=== PATIENT | female | born 1995 | race Caucasian/White ===

== ENCOUNTER 2018-09-24 16:26 | Inpatient (IN) | payer MEDICAID ==
[~2018-09-24] VITALS: Ht 162.6 cm; Wt 112.1 kg
[2018-09-24] MEDS ORDERED: MOM 30ML SUSPENSION UDC PO PRN (18:00)
[2018-09-24] MEDS ORDERED: ONDANSETRON 4 MG TAB (S0181) PO PRN (18:00)
[2018-09-24 18:15] VITALS: BP 134/79
[2018-09-24] MEDS ORDERED: ENTER DRUG NAME HERE (PATIENT'S OWN MED) PO SCH (18:15)
[2018-09-24] MEDS ORDERED: ENSK1TAB3 PO (19:10)
[2018-09-24] MEDS ORDERED: IBUP200T45 PO (19:10)
[2018-09-24] MEDS ORDERED: BISACODYL 10 MG SUPP PR PRN (19:30)
[2018-09-24] MEDS: ACETAMINOPHEN TAB 650MG DOSE (2X325MG) PO SCH (21:59)
[2018-09-24 22:00] VITALS: BP 129/60
[2018-09-24] MEDS: DOCUSATE SODIUM 100 MG CAP PO SCH (22:00)
[2018-09-24] MEDS: SENNA 8.6 MG TAB (SENOKOT) PO SCH (22:00)
[2018-09-24] MEDS: CYCLOBENZAPRINE 5MG TABLET PO PRN (22:00)
[2018-09-24] MEDS: BISACODYL 5 MG TAB PO SCH (22:02)
[2018-09-25] MEDS: CYCLOBENZAPRINE 5MG TABLET PO PRN ×3 (04:01→16:46)
[2018-09-25 06:00] VITALS: BP 125/60
[2018-09-25 07:09] LABS: BASO % 0.5 % (0.0-1.0); EOS # 0.1 10^3/uL (0.0-0.50); EOS % 2.2 % (0.0-3.0); HEMATOCRIT 30.7 % (36.0-47.0); HEMOGLOBIN 9.3 g/dl (12.0-15.5); LYMPH # 2.2 10^3/uL (1.5-6.5); LYMPH % 34.5 % (24.0-44.0); MEAN CORPUSCULAR HEMOGLOBIN 25.7 pg (27.0-33.0); MEAN CORPUSCULAR HGB CONC 30.3 g/dl (32.0-36.5); MEAN CORPUSCULAR VOLUME 84.8 fl (80.0-96.0); MONO # 0.6 10^3/uL (0.0-0.8); MONO % 9.7 % (0.0-5.0); NEUTROPHILS # 3.4 10^3/uL (1.8-7.7); NEUTROPHILS % 52.8 % (36.0-66.0); PLATELET COUNT, AUTOMATED 335 10^3/uL (150-450); RED BLOOD COUNT 3.62 10^6/uL (4.00-5.40); WHITE BLOOD COUNT 6.4 10^3/uL (4.0-10.0)
[2018-09-25 07:30] LABS: ALBUMIN 2.6 GM/DL (3.2-5.2); ALT/SGPT 64 U/L (12-78); BILIRUBIN,TOTAL 0.3 MG/DL (0.2-1.0); BLOOD UREA NITROGEN 5 MG/DL (7-18); CARBON DIOXIDE LEVEL 32 MEQ/L (21-32); CHLORIDE LEVEL 106 MEQ/L (98-107); CREATININE FOR GFR 0.61 MG/DL (0.55-1.30); GLOMERULAR FILTRATION RATE > 60.0 (>60); GLUCOSE, FASTING 91 MG/DL (70-100); POTASSIUM SERUM 3.7 MEQ/L (3.5-5.1); SODIUM LEVEL 142 MEQ/L (136-145)
[2018-09-25] MEDS: PANTOPRAZOLE 40MG TAB (PROTONIX) PO SCH (08:44)
[2018-09-25] MEDS: ASPIRIN 325 MG TAB PO SCH (08:44)
[2018-09-25] MEDS: BISACODYL 5 MG TAB PO SCH (08:44)
[2018-09-25] MEDS: DOCUSATE SODIUM 100 MG CAP PO SCH ×2 (08:44→21:00)
[2018-09-25] MEDS: ACETAMINOPHEN TAB 650MG DOSE (2X325MG) PO SCH ×2 (08:44→16:45)
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
[2018-09-25] MEDS: ENOXAPARIN 40 MG/0.4 ML SYRINGE (J1650) SC SCH (11:10)
[2018-09-25] MEDS: oxyCODONE 5MG TAB PO PRN (11:10)
[2018-09-25 11:28] LABS: HCG, SERUM QUANTITATIVE < 1.0 MIU/ML
--- NOTE | 2018-09-25 11:46 | REP ---
BILATERAL LOWER EXTREMITY DUPLEX DOPPLER VENOUS ULTRASOUND: Real-time compression and duplex Doppler interrogation of the bilateral lower extremity deep venous systems is performed. Bilateral common femoral and superficial femoral veins are fully compressible with transducer pressure as is the left popliteal vein, with normal internal flow and no intraluminal thrombus. Right popliteal vein could not be visualized due to patient immobility and unable to maintain appropriate positioning to adequately visual the right popliteal vein. IMPRESSION: Right popliteal vein could not be visualized. Otherwise, no evidence of deep vein thrombosis bilateral lower extremities. Electronically Signed by Khari Boland MD 09/26/2018 11:35 A
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
[2018-09-25 14:00] VITALS: BP 121/59
[2018-09-25] MEDS ORDERED: MAGNESIUM CITRATE 300 ML BTL PO ONE (16:00)
[2018-09-25 20:00] VITALS: BP 133/67
[2018-09-25] MEDS: ACETAMINOPHEN 500 MG TAB PO SCH (21:00)
[2018-09-25] MEDS: SENNA 8.6 MG TAB (SENOKOT) PO SCH (21:00)
[2018-09-25] MEDS: NORCO, ANEXSIA 5/325MG TABLET (HYDROcodone/ACETAMINOPHEN) PO PRN (22:05)
[2018-09-26] MEDS: NORCO, ANEXSIA 5/325MG TABLET (HYDROcodone/ACETAMINOPHEN) PO PRN (03:19)
[2018-09-26 06:00] VITALS: BP 114/58
[2018-09-26] MEDS: BISACODYL 5 MG TAB PO SCH (09:00)
[2018-09-26] MEDS: DOCUSATE SODIUM 100 MG CAP PO SCH ×2 (09:00→21:00)
[2018-09-26] MEDS ORDERED: zolPIDEM TARTRATE 5 MG TAB PO PRN (09:45)
[2018-09-26] MEDS: ENOXAPARIN 40 MG/0.4 ML SYRINGE (J1650) SC SCH (09:46)
[2018-09-26] MEDS: PANTOPRAZOLE 40MG TAB (PROTONIX) PO SCH (09:46)
[2018-09-26] MEDS: ACETAMINOPHEN 500 MG TAB PO SCH ×3 (09:46→20:45)
[2018-09-26] MEDS: ASPIRIN 325 MG TAB PO SCH (09:46)
[2018-09-26] MEDS ORDERED: PILL CUTTER 1 EACH XX PRN (10:00)
[2018-09-26] MEDS ORDERED: oxyCODONE 5MG TAB PO ONE (10:00)
[2018-09-26] MEDS ORDERED: KETOROLAC TROMETHAMINE 10 MG TAB PO ONE (10:00)
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
[2018-09-26 14:00] VITALS: BP 127/56
[2018-09-26 19:56] VITALS: BP 127/60
[2018-09-26] MEDS: SENNA 8.6 MG TAB (SENOKOT) PO SCH (21:00)
[2018-09-27 04:00] VITALS: BP 111/59
[2018-09-27] MEDS: oxyCODONE 5MG TAB PO PRN ×2 (07:39→21:30)
[2018-09-27] MEDS: ENOXAPARIN 40 MG/0.4 ML SYRINGE (J1650) SC SCH (07:39)
[2018-09-27] MEDS: PANTOPRAZOLE 40MG TAB (PROTONIX) PO SCH (07:39)
[2018-09-27] MEDS: ASPIRIN 325 MG TAB PO SCH (07:39)
[2018-09-27] MEDS: BISACODYL 5 MG TAB PO SCH (09:00)
[2018-09-27] MEDS: DOCUSATE SODIUM 100 MG CAP PO SCH ×2 (09:00→20:54)
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
[2018-09-27] MEDS: ACETAMINOPHEN 500 MG TAB PO SCH ×3 (10:15→20:53)
[2018-09-27 10:35] LABS: HEMATOCRIT 31.8 % (36.0-47.0); HEMOGLOBIN 9.8 g/dl (12.0-15.5); MEAN CORPUSCULAR HEMOGLOBIN 26.1 pg (27.0-33.0); MEAN CORPUSCULAR HGB CONC 30.8 g/dl (32.0-36.5); MEAN CORPUSCULAR VOLUME 84.6 fl (80.0-96.0); PLATELET COUNT, AUTOMATED 423 10^3/uL (150-450); RED BLOOD COUNT 3.76 10^6/uL (4.00-5.40); WHITE BLOOD COUNT 8.3 10^3/uL (4.0-10.0)
[2018-09-27 10:57] LABS: BLOOD UREA NITROGEN 6 MG/DL (7-18); CALCIUM LEVEL 9.3 MG/DL (8.5-10.1); CARBON DIOXIDE LEVEL 27 MEQ/L (21-32); CHLORIDE LEVEL 105 MEQ/L (98-107); CREATININE FOR GFR 0.65 MG/DL (0.55-1.30); GLOMERULAR FILTRATION RATE > 60.0 (>60); GLUCOSE, FASTING 84 MG/DL (70-100); POTASSIUM SERUM 4.1 MEQ/L (3.5-5.1); SODIUM LEVEL 138 MEQ/L (136-145)
[2018-09-27 14:00] VITALS: BP 127/59
[2018-09-27 20:00] VITALS: BP 142/92
[2018-09-27] MEDS: SENNA 8.6 MG TAB (SENOKOT) PO SCH (20:55)
[2018-09-27] MEDS: zolPIDEM TARTRATE 5 MG TAB PO PRN (21:30)
[2018-09-28 05:53] VITALS: BP 120/70
[2018-09-28 07:18] LABS: BASO % 0.3 % (0.0-1.0); EOS # 0.2 10^3/uL (0.0-0.50); EOS % 2.9 % (0.0-3.0); HEMATOCRIT 29.2 % (36.0-47.0); LYMPH # 2.3 10^3/uL (1.5-6.5); LYMPH % 34.7 % (24.0-44.0); MEAN CORPUSCULAR HEMOGLOBIN 25.8 pg (27.0-33.0); MEAN CORPUSCULAR HGB CONC 30.8 g/dl (32.0-36.5); MEAN CORPUSCULAR VOLUME 83.7 fl (80.0-96.0); MONO # 0.5 10^3/uL (0.0-0.8); MONO % 7.6 % (0.0-5.0); NEUTROPHILS # 3.6 10^3/uL (1.8-7.7); NEUTROPHILS % 54.3 % (36.0-66.0); PLATELET COUNT, AUTOMATED 387 10^3/uL (150-450); RED BLOOD COUNT 3.49 10^6/uL (4.00-5.40); WHITE BLOOD COUNT 6.5 10^3/uL (4.0-10.0)
[2018-09-28] MEDS: oxyCODONE 5MG TAB PO PRN (07:30)
[2018-09-28 07:44] LABS: BLOOD UREA NITROGEN 10 MG/DL (7-18); CALCIUM LEVEL 9.2 MG/DL (8.5-10.1); CARBON DIOXIDE LEVEL 29 MEQ/L (21-32); CHLORIDE LEVEL 107 MEQ/L (98-107); CREATININE FOR GFR 0.63 MG/DL (0.55-1.30); GLOMERULAR FILTRATION RATE > 60.0 (>60); GLUCOSE, FASTING 93 MG/DL (70-100); POTASSIUM SERUM 3.9 MEQ/L (3.5-5.1); SODIUM LEVEL 143 MEQ/L (136-145)
[2018-09-28] MEDS: ACETAMINOPHEN 500 MG TAB PO SCH ×3 (08:14→20:58)
[2018-09-28] MEDS: PANTOPRAZOLE 40MG TAB (PROTONIX) PO SCH (08:14)
[2018-09-28] MEDS: ASPIRIN 325 MG TAB PO SCH (08:14)
[2018-09-28] MEDS: ENOXAPARIN 40 MG/0.4 ML SYRINGE (J1650) SC SCH (08:15)
[2018-09-28] MEDS: BISACODYL 5 MG TAB PO SCH ×2 (09:00→10:15)
[2018-09-28] MEDS: DOCUSATE SODIUM 100 MG CAP PO SCH ×2 (09:00→21:00)
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
[2018-09-28 14:00] VITALS: BP 131/64
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
[2018-09-28 20:00] VITALS: BP 136/77
[2018-09-28] MEDS: zolPIDEM TARTRATE 5 MG TAB PO PRN (20:59)
[2018-09-28] MEDS: SENNA 8.6 MG TAB (SENOKOT) PO SCH (21:00)
[2018-09-29 06:00] VITALS: BP 144/60
[2018-09-29] MEDS: DOCUSATE SODIUM 100 MG CAP PO SCH ×2 (09:00→20:04)
[2018-09-29] MEDS: BISACODYL 5 MG TAB PO SCH ×2 (09:00)
[2018-09-29] MEDS: ENOXAPARIN 40 MG/0.4 ML SYRINGE (J1650) SC SCH (09:32)
[2018-09-29] MEDS: PANTOPRAZOLE 40MG TAB (PROTONIX) PO SCH (09:32)
[2018-09-29] MEDS: ASPIRIN 325 MG TAB PO SCH (09:32)
[2018-09-29] MEDS: ACETAMINOPHEN 500 MG TAB PO SCH ×3 (09:34→20:04)
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
[2018-09-29 14:00] VITALS: BP 143/80
[2018-09-29 20:00] VITALS: BP 131/60
[2018-09-29] MEDS: SENNA 8.6 MG TAB (SENOKOT) PO SCH (20:04)
[2018-09-29] MEDS: zolPIDEM TARTRATE 5 MG TAB PO PRN (21:26)
[2018-09-30 06:00] VITALS: BP 135/65
[2018-09-30] MEDS: DOCUSATE SODIUM 100 MG CAP PO SCH (09:00)
[2018-09-30] MEDS: BISACODYL 5 MG TAB PO SCH ×2 (09:00)
[2018-09-30] MEDS: ASPIRIN 325 MG TAB PO SCH (09:11)
[2018-09-30] MEDS: ACETAMINOPHEN 500 MG TAB PO SCH (09:11)
[2018-09-30] MEDS: PANTOPRAZOLE 40MG TAB (PROTONIX) PO SCH (09:11)
[2018-09-30] MEDS ORDERED: XARE10TA PO (11:06)
[2018-09-30] MEDS ORDERED: PANT40TA3 PO (11:06)
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
[2018-09-30] MEDS ORDERED: RIVAROXABAN 10 MG TAB (XARELTO) PO SCH (18:00)
== END 2018-09-30 12:25 | disposition home or self-care (01) | DRG 862 ==
LOC: M PM&R 18:10
PROVIDERS: ADMIT Physical Medicine & Rehabilitation; ATTEND Physical Medicine & Rehabilitation
DX: S82.131D Displaced fracture of medial condyle of right tibia, subsequent encounter for closed fracture with routine healing (principal); E66.9 Obesity, unspecified; G47.00 Insomnia, unspecified; V46 Car occupant injured in collision with other nonmotor vehicle

== ENCOUNTER 2020-09-25 11:02 | Emergency (ER) | payer MEDICAID, OTHER ==
[~2020-09-25] VITALS: Ht 162.6 cm; Wt 127.7 kg
[~2020-09-25 11:02] MED LIST: ENSK1TAB3 PO; IBUP200T46 PO; PANT40TA29 PO; XARE10TA PO
[2020-09-25 13:43] VITALS: BP 139/82
== END 2020-09-25 13:47 | disposition home or self-care (01) ==
LOC: M ED 11:02
DX: S89.92XA Unspecified injury of left lower leg, initial encounter (principal); W01.0XXA Fall on same level from slipping, tripping and stumbling without subsequent striking against object, initial encounter; Y92.9 Unspecified place or not applicable; Y93.9 Activity, unspecified; Y99.0 Civilian activity done for income or pay; E66.9 Obesity, unspecified; Z98.890 Other specified postprocedural states

== ENCOUNTER 2020-11-08 15:50 | Emergency (ER) | payer OTHER ==
[~2020-11-08] VITALS: Ht 162.6 cm; Wt 128.6 kg
[~2020-11-08 15:50] MED LIST changes: +IBUP200T45 PO; -IBUP200T46 PO
[2020-11-08 15:51] VITALS: BP 122/71
== END 2020-11-08 20:26 | disposition left against medical advice (07) ==
LOC: M ED 15:50
DX: Z53.21 Procedure and treatment not carried out due to patient leaving prior to being seen by health care provider (principal)

== ENCOUNTER → 2020-11-16 | Outpatient (REF) | LOC: M EMP 14:33 | PROVIDERS: ATTEND Family Medicine | DX: Z20.822 Contact with and (suspected) exposure to COVID-19 (principal) ==

== ENCOUNTER → 2021-01-04 | Outpatient (REF) ==
[~2021-01-04] MED LIST changes: -IBUP200T45 PO; +IBUP200T46 PO
== END ==
LOC: M EMP 10:23
PROVIDERS: ATTEND Family Medicine
DX: Z11.52 Encounter for screening for COVID-19 (principal)

== ENCOUNTER → 2021-02-11 | Outpatient (REF) ==
[2021-02-11 16:33] LABS: RSV AMPLIFICATION NEGATIVE (NEGATIVE)
== END ==
LOC: M EMP 15:13
PROVIDERS: ATTEND Family Medicine
DX: Z11.52 Encounter for screening for COVID-19 (principal)

== ENCOUNTER → 2021-03-23 | Outpatient (REF) | LOC: M EMP 17:29 | PROVIDERS: ATTEND Family Medicine | DX: Z20.822 Contact with and (suspected) exposure to COVID-19 (principal) ==

== ENCOUNTER → 2021-06-08 | Outpatient (CLI) | payer OTHER | LOC: M PLARAD 10:42 | PROVIDERS: ATTEND Physician Assistant | DX: M54.16 Radiculopathy, lumbar region (principal); M25.78 Osteophyte, vertebrae; M51.26 Other intervertebral disc displacement, lumbar region; M51.27 Other intervertebral disc displacement, lumbosacral region ==

== ENCOUNTER → 2021-07-04 | Outpatient (REF) | LOC: M EMP 14:11 | PROVIDERS: ATTEND Family Medicine | DX: Z11.52 Encounter for screening for COVID-19 (principal); Z20.822 Contact with and (suspected) exposure to COVID-19 ==

== ENCOUNTER 2021-08-29 17:13 | Emergency (ER) | payer OTHER ==
[~2021-08-29] VITALS: Ht 162.6 cm; Wt 130.0 kg
[2021-08-29 17:14] VITALS: BP 138/69
== END 2021-08-29 19:16 | disposition home or self-care (01) ==
LOC: M ED 17:13
DX: S63.501A Unspecified sprain of right wrist, initial encounter (principal); W19.XXXA Unspecified fall, initial encounter; Y92.009 Unspecified place in unspecified non-institutional (private) residence as the place of occurrence of the external cause; Y93.9 Activity, unspecified; Y99.9 Unspecified external cause status

== ENCOUNTER → 2022-05-30 | Outpatient (REF) | payer OTHER | LOC: M LAB REF 16:22 | PROVIDERS: ATTEND Physician Assistant | DX: J02.9 Acute pharyngitis, unspecified (principal) ==

== ENCOUNTER → 2023-03-15 | Outpatient (REF) | payer OTHER | LOC: M LAB REF 10:16 | PROVIDERS: ATTEND Physician Assistant Medical | DX: R05.9 Cough, unspecified (principal) ==

== ENCOUNTER 2023-07-08 10:23 | Day surgery (SDC) | payer OTHER ==
[~2023-07-08] VITALS: Ht 162.6 cm; Wt 140.8 kg
[2023-07-08] MEDS: NS 1,000 ML IV ONE (10:40)
[2023-07-08] MEDS ORDERED: LIDOCAINE 2% 100MG/5ML SDV (FOR ANES.) As Ordered ONE (12:22)
[2023-07-08] MEDS ORDERED: propofoL 200 MG/20 ML VIAL As Ordered ONE (12:22)
[2023-07-08 12:39] VITALS: BP 126/69; TEMP 98.1; O2SAT 92
== END 2023-07-08 13:10 | disposition home or self-care (01) ==
LOC: M OPP 10:23
PROVIDERS: ATTEND Internal Medicine Gastroenterology
DX: K29.70 Gastritis, unspecified, without bleeding (principal); R12 Heartburn; Z79.899 Other long term (current) drug therapy

== ENCOUNTER 2023-08-07 14:38 | Emergency (ER) | payer OTHER ==
[~2023-08-07] VITALS: Ht 162.6 cm; Wt 141.1 kg
[2023-08-07 14:38] VITALS: BP 137/78; TEMP 97.4; O2SAT 98
[2023-08-12] MEDS ORDERED: ALBU2.5V10 INH (08:54)
[2023-08-12] MEDS ORDERED: MEDR10TA9 PO (08:54)
[2023-08-12] MEDS ORDERED: BUPR-71 PO (08:54)
== END 2023-08-07 19:54 | disposition left against medical advice (07) ==
LOC: M ED 14:38
DX: Z53.21 Procedure and treatment not carried out due to patient leaving prior to being seen by health care provider (principal)

== ENCOUNTER 2023-08-15 11:06 | Day surgery (SDC) | payer OTHER ==
[~2023-08-15] VITALS: Ht 162.6 cm; Wt 141.4 kg
[~2023-08-15 11:06] MED LIST changes: +ALBU2.5V10 INH; +BUPR-71 PO; +LIDOCAINE 2% 100MG/5ML SDV (FOR ANES.) As Ordered ONE; +MEDR10TA9 PO; +propofoL 200 MG/20 ML VIAL As Ordered ONE
[2023-08-15] MEDS: NS 1,000 ML IV ONE (11:59)
[2023-08-15] MEDS ORDERED: fentaNYL 100 MCG/2 ML INJECTION As Ordered ONE (12:30)
[2023-08-15 13:55] VITALS: BP 137/70; TEMP 97.4; O2SAT 97
== END 2023-08-15 14:04 | disposition home or self-care (01) ==
LOC: M OPP 11:06
PROVIDERS: ATTEND Internal Medicine Gastroenterology
DX: K20.90 Esophagitis, unspecified without bleeding (principal); K21.9 Gastro-esophageal reflux disease without esophagitis; R12 Heartburn; E78.5 Hyperlipidemia, unspecified; I10 Essential (primary) hypertension; Z79.3 Long term (current) use of hormonal contraceptives; Z79.51 Long term (current) use of inhaled steroids; Z79.899 Other long term (current) drug therapy
CPT/HCPCS: 43235; 91035; J3010

== ENCOUNTER → 2023-11-24 | Outpatient (REF) | payer OTHER ==
[~2023-11-24] MED LIST changes: -LIDOCAINE 2% 100MG/5ML SDV (FOR ANES.) As Ordered ONE; -propofoL 200 MG/20 ML VIAL As Ordered ONE
== END ==
LOC: M LAB REF 16:09
PROVIDERS: ATTEND Physician Assistant
DX: B34.9 Viral infection, unspecified (principal)

== ENCOUNTER → 2024-11-03 | Outpatient (CLI) | payer OTHER | LOC: M RAD 06:11 | PROVIDERS: ATTEND Physical Medicine & Rehabilitation | DX: M48.061 Spinal stenosis, lumbar region without neurogenic claudication (principal); M25.552 Pain in left hip; M25.852 Other specified joint disorders, left hip; M51.46 Schmorl's nodes, lumbar region; M47.816 Spondylosis without myelopathy or radiculopathy, lumbar region ==